=== PATIENT | female | born 1985 | race African-American/Black ===

== ENCOUNTER 2017-01-28 10:53 | Emergency (ER) | payer MEDICAID, OTHER ==
[~2017-01-28] VITALS: Ht 152.4 cm; Wt 59.0 kg
[2017-01-28] MEDS ORDERED: ONDANSETRON HCL 4MG/2ML VIAL IV STA (11:36)
[2017-01-28] MEDS ORDERED: SODIUM CHLORIDE 0.9% 500 ML IV ONE (11:36)
[2017-01-28] MEDS ORDERED: KETOROLAC 30MG/ML VIAL IV STA (11:36)
[2017-01-28 12:24] LABS: BASOPHILS % 0.4 % (0.0-2.0); EOSINOPHILS % 3.9 % (0.0-5.0); HEMATOCRIT. 34.7 % (36.0-48.0); HEMOGLOBIN. 11.3 g/dL (12.0-16.0); LYMPHOCYTES % 42.7 % (20.0-50.0); MEAN CORPUSCULAR HEMOGLOBIN 26.5 pg (28.0-32.0); MEAN CORPUSCULAR VOLUME 81.3 fL (81.0-99.0); MEAN PLATELET VOLUME 10.1 fl (7.4-10.4); MONOCYTES % 6.5 % (2.0-8.0); NEUTROPHILS % 46.5 % (40.0-76.0); PLATELET 179 x1000/uL (130-400); RED BLOOD CELL COUNT 4.27 mill/uL (4.2-5.4)
[2017-01-28 12:26] LABS: CHLORIDE 107 mEq/L (98-107)
[2017-01-28 12:33] LABS: CARBON DIOXIDE 30 mEq/L (21-32)
[2017-01-28] MEDS ORDERED: HYDROCODONE/ACETAMINOPHEN 5/325MG TABLET PO ONE (12:45)
[2017-01-28 14:51] VITALS: BP 95/54
== END 2017-01-28 15:16 | disposition home or self-care (01) ==
LOC: ER 11:17
DX: R51 Headache (principal); R11.0 Nausea; R53.1 Weakness; Z88.8 Allergy status to other drugs, medicaments and biological substances
CPT/HCPCS: 36415; 70450; 80053; 81025; 85025; 96374; 96375; 99285; J1885; J2405; J7040; J7042; Z7610; J7030

== ENCOUNTER 2019-03-16 16:06 | Emergency (ER) | payer MEDICAID, OTHER ==
[~2019-03-16] VITALS: Ht 162.6 cm; Wt 60.0 kg
[2019-03-16 20:00] VITALS: BP 111/65
== END 2019-03-16 20:00 | disposition home or self-care (01) ==
LOC: ER 17:03
DX: L30.9 Dermatitis, unspecified (principal); Z88.3 Allergy status to other anti-infective agents
CPT/HCPCS: 99282